=== PATIENT | female | born 1950 | race Caucasian/White ===

== ENCOUNTER 2017-11-28 23:24 | Inpatient (IN) | payer OTHER, BC ==
[2017-11-29 02:10] LABS: ADD MAN DIFF? NO
[2017-11-29 02:13] LABS: WHITE BLOOD COUNT 12.6 10^3/ul (4.8-10.8)
[2017-11-29 02:13] LABS: BASOPHILS % 0.2 % (0.0-2.0); EOSINOPHILS # 0.1 10^3/ul (0.0-0.5); EOSINOPHILS % 0.4 % (0.0-7.0); HEMATOCRIT 44.5 % (37.0-47.0); HEMOGLOBIN 14.6 g/dl (12.0-16.0); LYMPHOCYTES % 15.5 % (15.0-51.0); MEAN CORPUSCULAR HEMOGLOBIN 28.4 pg (29.0-33.0); MEAN CORPUSCULAR HGB CONC 32.8 g/dl (32.0-37.0); MEAN CORPUSCULAR VOLUME 86.6 fl (82.0-101.0); MEAN PLATELET VOLUME 10.3 fl (7.4-10.4); MONOCYTE # 0.7 10^3/ul (0.3-0.9); MONOCYTES % 5.9 % (0.0-11.0); NEUTROPHIL # 9.8 10^3/ul (1.6-7.5); NEUTROPHILS % 77.7 % (39.0-77.0); PLATELET COUNT 283 10^3/UL (140-415); RED BLOOD COUNT 5.14 10^6/ul (4.20-5.40); RED CELL DISTRIBUTION WIDTH 13.8 % (11.5-14.5)
[2017-11-29 02:19] LABS: ADD UMIC YES; UR ASCORBIC ACID NEGATIVE (NEGATIVE); UR BACTERIA FEW /HPF (NONE SEEN); UR BILIRUBIN (Dip) NEGATIVE (NEGATIVE); UR BLOOD (Dip) 2+ mg/dL (NEGATIVE); UR CLARITY CLEAR (CLEAR); UR COLOR AMBER (YELLOW); UR GLUCOSE (Dip) NEGATIVE (NEGATIVE); UR KETONES (Dip) NEGATIVE (NEGATIVE); UR LEUKOCYTE ESTERASE (Dip) NEGATIVE Leu/ul (NEGATIVE); UR NITRITE (Dip) POSITIVE (NEGATIVE); UR RBC 2 /HPF (0-5); UR SPECIFIC GRAVITY (Dip) 1.006 (1.003-1.030); UR TOTAL PROTEIN (Dip) NEGATIVE (NEGATIVE); UR UROBILINOGEN (Dip) 2+ mg/dL (NEGATIVE); UR WBC 1 /HPF (0-5)
[2017-11-29] MEDS: ONDANSETRON 4 MG INJ IV (02:23)
[2017-11-29] MEDS: morphine 4 MG/ML VIAL IV (02:23)
[2017-11-29] MEDS: SOD CHLORIDE 0.9% 500 ML IV (02:24)
[2017-11-29 02:34] LABS: ALANINE AMINOTRANSFERASE 39 IU/L (13-69); ALBUMIN 4.7 g/dl (3.3-4.9); ALBUMIN/GLOBULIN RATIO 1.11; ALKALINE PHOSPHATASE 120 IU/L (42-121); ANION GAP 19 (8-16); ASPARTATE AMINO TRANSFERASE 34 IU/L (15-46); BILIRUBIN,INDIRECT 0.9 mg/dl (0-1.1); BILIRUBIN,TOTAL 0.9 mg/dl (0.2-1.3); BLOOD UREA NITROGEN 16 mg/dl (7-20); CALCIUM 9.4 mg/dl (8.4-10.2); CARBON DIOXIDE 24 mmol/L (21-31); CHLORIDE 103 mmol/L (97-110); CREATININE 0.83 mg/dl (0.44-1.00); GLUCOSE 153 mg/dl (70-220); LIPASE 37 U/L (23-300); POTASSIUM 3.8 mmol/L (3.5-5.1); SODIUM 142 mmol/L (135-144); TOTAL PROTEIN 8.9 g/dl (6.1-8.1)
[2017-11-29] MEDS: LEVOFLOXACIN 750MG/D5W (PMX) 150 ML IVPB (03:59)
[2017-11-29] MEDS ORDERED: NACL 0.9% 3 ML SYG IV (06:30)
[2017-11-29] MEDS ORDERED: morphine 2 MG INJ IV (06:30)
[2017-11-29] MEDS ORDERED: ACETAMINOPHEN 325 MG TAB PO (06:30)
[2017-11-29] MEDS: SOD CHLORIDE 0.9% 1,000 ML IV ×2 (06:42→19:21)
[2017-11-29] MEDS: TAMSULOSIN (SR) 0.4 MG CAP PO ×2 (06:54→21:00)
[2017-11-29] MEDS: AMLODIPINE 10 MG TAB PO ×2 (06:55→09:00)
[2017-11-29] MEDS: HYDROCHLOROTHIAZIDE 25 MG TAB PO (08:52)
[2017-11-29] MEDS: ATORVASTATIN 20 MG TAB PO (21:00)
[2017-11-29] MEDS ORDERED: morphine LIQ (10 MG/5 ML) CUP PO (23:30)
[2017-11-30] MEDS: LEVOFLOXACIN 750MG/D5W (PMX) 150 ML IVPB (03:57)
[2017-11-30 05:25] LABS: ADD MAN DIFF? NO
[2017-11-30 05:33] LABS: BASOPHILS % 0.1 % (0.0-2.0); EOSINOPHILS # 0.1 10^3/ul (0.0-0.5); HEMATOCRIT 38.4 % (37.0-47.0); HEMOGLOBIN 12.4 g/dl (12.0-16.0); LYMPHOCYTES # 2.2 10^3/ul (0.8-2.9); LYMPHOCYTES % 31.6 % (15.0-51.0); MEAN CORPUSCULAR HEMOGLOBIN 27.9 pg (29.0-33.0); MEAN CORPUSCULAR HGB CONC 32.3 g/dl (32.0-37.0); MEAN CORPUSCULAR VOLUME 86.3 fl (82.0-101.0); MEAN PLATELET VOLUME 10.6 fl (7.4-10.4); MONOCYTE # 0.7 10^3/ul (0.3-0.9); MONOCYTES % 9.8 % (0.0-11.0); NEUTROPHIL # 3.9 10^3/ul (1.6-7.5); NEUTROPHILS % 57.2 % (39.0-77.0); PLATELET COUNT 245 10^3/UL (140-415); RED BLOOD COUNT 4.45 10^6/ul (4.20-5.40)
[2017-11-30 05:33] LABS: WHITE BLOOD COUNT 6.8 10^3/ul (4.8-10.8)
[2017-11-30 05:48] LABS: HEMOGLOBIN A1C 6.9 % (0-5.9)
[2017-11-30 05:51] LABS: ALANINE AMINOTRANSFERASE 46 IU/L (13-69); ALBUMIN 3.6 g/dl (3.3-4.9); ALBUMIN/GLOBULIN RATIO 1.24; ALKALINE PHOSPHATASE 92 IU/L (42-121); ANION GAP 14 (8-16); ASPARTATE AMINO TRANSFERASE 33 IU/L (15-46); BILIRUBIN,INDIRECT 0.3 mg/dl (0-1.1); BILIRUBIN,TOTAL 0.3 mg/dl (0.2-1.3); BLOOD UREA NITROGEN 11 mg/dl (7-20); CALCIUM 8.7 mg/dl (8.4-10.2); CARBON DIOXIDE 26 mmol/L (21-31); CHLORIDE 104 mmol/L (97-110); CHOL/HDL RATIO 3.8 RATIO; CHOLESTEROL 150 mg/dl (100-200); CREATININE 0.59 mg/dl (0.44-1.00); GLUCOSE 142 mg/dl (70-220); HDL CHOLESTEROL 39 mg/dl (35-98); LDL CHOLESTEROL,CALCULATED 90 mg/dl; MAGNESIUM 1.8 mg/dl (1.7-2.5); POTASSIUM 3.6 mmol/L (3.5-5.1); SODIUM 140 mmol/L (135-144); TOTAL PROTEIN 6.5 g/dl (6.1-8.1); TRIGLYCERIDES 103 mg/dl (0-149)
[2017-11-30] MEDS: SOD CHLORIDE 0.9% 1,000 ML IV ×3 (07:01→21:18)
[2017-11-30] MEDS: AMLODIPINE 10 MG TAB PO (08:19)
[2017-11-30] MEDS: HYDROCHLOROTHIAZIDE 25 MG TAB PO (08:19)
[2017-11-30] MEDS: LISINOPRIL 5 MG TAB PO (10:38)
[2017-11-30] MEDS ORDERED: GLUCOSE GEL 15 GRAM TUBE BUCCAL (11:30)
[2017-11-30] MEDS ORDERED: DEXTROSE 50% 50 ML SYRINGE IV ×2 (11:30)
[2017-11-30] MEDS ORDERED: GLUCOSE GEL 15 GRAM TUBE PO ×2 (11:30)
[2017-11-30] MEDS ORDERED: GLUCAGON 1 MG INJ IM (11:30)
[2017-11-30] MEDS: INSULIN ASPART [NOVOLOG] 3 ML PEN SC ×3 (11:45→21:00)
[2017-11-30] MEDS: BENAZEPRIL 40 MG TAB PO (12:01)
[2017-11-30] MEDS: ATORVASTATIN 20 MG TAB PO (21:18)
[2017-11-30] MEDS: TAMSULOSIN (SR) 0.4 MG CAP PO (21:18)
[2017-12-01] MEDS: LEVOFLOXACIN 750MG/D5W (PMX) 150 ML IVPB (04:33)
[2017-12-01 06:17] LABS: ANION GAP 11 (8-16); BLOOD UREA NITROGEN 19 mg/dl (7-20); CALCIUM 8.6 mg/dl (8.4-10.2); CARBON DIOXIDE 28 mmol/L (21-31); CHLORIDE 104 mmol/L (97-110); CREATININE 0.79 mg/dl (0.44-1.00); GLUCOSE 122 mg/dl (70-220); POTASSIUM 3.8 mmol/L (3.5-5.1); SODIUM 139 mmol/L (135-144)
[2017-12-01] MEDS: INSULIN ASPART [NOVOLOG] 3 ML PEN SC (07:35)
[2017-12-01] MEDS ORDERED: LISINOPRIL 5 MG TAB PO (09:00)
[2017-12-01] MEDS: HYDROCHLOROTHIAZIDE 25 MG TAB PO (10:32)
[2017-12-01] MEDS: BENAZEPRIL 40 MG TAB PO (10:32)
[2017-12-01] MEDS: AMLODIPINE 10 MG TAB PO (10:33)
[2017-12-01] MEDS: SOD CHLORIDE 0.9% 1,000 ML IV (10:36)
== END 2017-12-01 11:49 | disposition home or self-care (01) | DRG 690 ==
LOC: E/R 23:24 → MS3 11-29 05:44
DX: N13.6 Pyonephrosis (principal); I10 Essential (primary) hypertension; E11.9 Type 2 diabetes mellitus without complications; E78.5 Hyperlipidemia, unspecified; E66.9 Obesity, unspecified; K43.9 Ventral hernia without obstruction or gangrene; R11.2 Nausea with vomiting, unspecified; Z68.33 Body mass index [BMI] 33.0-33.9, adult; Z79.4 Long term (current) use of insulin; Z79.82 Long term (current) use of aspirin; Z90.49 Acquired absence of other specified parts of digestive tract
CPT/HCPCS: 36415; 74018; 74176; 76775; 80048; 80053; 80061; 81001; 82962; 83036; 83690; 83735; 84443; 85025; 87040; 87086; 96361; 96365; 96375; 99285-25